=== PATIENT | male | born 1950 | race Caucasian/White ===

== ENCOUNTER 2021-01-19 07:48 | Inpatient (IN) | payer MEDICAID, OTHER ==
[~2021-01-19] VITALS: Ht 165.1 cm; Wt 72.2 kg
[2021-01-19] MEDS ORDERED: DILTIAZEM HCL 5MG/ML 5ML VIAL IV ONE (08:30)
[2021-01-19] MEDS ORDERED: SODIUM CHLORIDE 0.9% 500 ML IV ONE ×2 (08:30→09:30)
[2021-01-19 08:34] LABS: BASOPHILS % 0.8 % (0.0-2.0); EOSINOPHILS % 0.8 % (0.0-5.0); HEMATOCRIT. 44.4 % (42.0-52.0); HEMOGLOBIN. 14.8 g/dL (14.0-18.0); LYMPHOCYTES % 26.6 % (20.0-50.0); MEAN CORPUSCULAR HEMOGLOBIN 30.4 pg (28.0-32.0); MEAN CORPUSCULAR VOLUME 91.3 fL (80.0-94.0); MEAN PLATELET VOLUME 8.1 fl (7.4-10.4); MONOCYTES % 6.7 % (2.0-8.0); NEUTROPHILS % 65.1 % (40.0-76.0); PLATELET 163 x1000/uL (130-400); RED BLOOD CELL COUNT 4.87 mill/uL (4.7-6.1); RED CELL DISTRIBUTION WIDTH 12.9 % (11.6-14.6)
[2021-01-19 08:36] LABS: CHLORIDE 110 mEq/L (98-107)
[2021-01-19] MEDS ORDERED: DIPHENHYDRAMINE 50MG/ML VIAL IV PRN (09:45)
[2021-01-19] MEDS ORDERED: ONDANSETRON HCL 4MG/2ML INJ IV PRN (09:45)
[2021-01-19] MEDS ORDERED: MORPHINE SULFATE 2 MG/ML CPJ (NOT FOR IM USE) IV PRN (09:45)
[2021-01-19] MEDS ORDERED: IPRATROPIUM/ALBUTEROL 0.5-3(2.5)MG/3ML NEB HHN PRN (09:45)
[2021-01-19] MEDS ORDERED: CLONIDINE 0.1MG TABLET PO PRN (09:45)
[2021-01-19] MEDS ORDERED: ENOXAPARIN 40MG/0.4ML SYR SUBCUT SCH (10:00)
[2021-01-19] MEDS: ACETAMINOPHEN 325MG TABLET PO PRN (10:01)
[2021-01-19] MEDS: METOPROLOL TARTRATE 25MG TABLET PO SCH ×4 (10:15→17:00)
[2021-01-19] MEDS ORDERED: ENOXAPARIN 30MG/0.3ML SYR SUBCUT NR (11:30)
[2021-01-19] MEDS ORDERED: IOHEXOL-350 100 ML BOTTLE ONE (12:33)
[2021-01-19 14:00] VITALS: BP 113/61
[2021-01-19 14:03] VITALS: BP 113/61
[2021-01-19 15:30] VITALS: BP 104/64
[2021-01-19 15:59] LABS: INR 1.1; PROTHROMBIN TIME 11.4 sec (9.6-11.0)
[2021-01-19 17:30] VITALS: BP 102/69
[2021-01-19] MEDS ORDERED: APIX5TAB MT (17:34)
[2021-01-19] MEDS ORDERED: OMEP10SU2 PO (17:34)
[2021-01-19] MEDS ORDERED: TAMS-11 MT (17:34)
[2021-01-19] MEDS ORDERED: ASPI-1406 MT (17:34)
[2021-01-19] MEDS ORDERED: BUSP5TAB3 MT (17:34)
[2021-01-19] MEDS ORDERED: TOPUD MT (17:34)
[2021-01-19] MEDS ORDERED: LOPHC2 MT (17:34)
[2021-01-19] MEDS ORDERED: ATOR20TA65 MT (17:34)
[2021-01-19] MEDS ORDERED: CALC-26 MT (17:34)
[2021-01-19] MEDS ORDERED: LORAZEPAM 1MG TABLET PO NR (17:45)
[2021-01-19] MEDS ORDERED: *PATIENT'S OWN MEDICATION STORAGE XX SCH (17:45)
[2021-01-19 20:00] VITALS: BP 105/61
[2021-01-19] MEDS ORDERED: ENOXAPARIN 80MG/0.8ML SYR SUBCUT SCH (21:00)
[2021-01-19] MEDS: ENOXAPARIN 80MG/0.8ML SYR SUBCUT SCH (21:13)
[2021-01-19 22:00] VITALS: BP 106/67
[2021-01-20] VITALS (12 sets, daily range): BP systolic 96–158; BP diastolic 60–94
[2021-01-20 06:56] LABS: BASOPHILS % 0.6 % (0.0-2.0); EOSINOPHILS % 0.7 % (0.0-5.0); HEMATOCRIT. 39.1 % (42.0-52.0); LYMPHOCYTES % 26.8 % (20.0-50.0); MEAN CORPUSCULAR HEMOGLOBIN 30.4 pg (28.0-32.0); MEAN CORPUSCULAR VOLUME 91.2 fL (80.0-94.0); MEAN PLATELET VOLUME 8.6 fl (7.4-10.4); MONOCYTES % 5.7 % (2.0-8.0); NEUTROPHILS % 66.2 % (40.0-76.0); PLATELET 152 x1000/uL (130-400); RED BLOOD CELL COUNT 4.28 mill/uL (4.7-6.1); RED CELL DISTRIBUTION WIDTH 13.4 % (11.6-14.6)
[2021-01-20 07:10] LABS: CHLORIDE 111 mEq/L (98-107)
[2021-01-20] MEDS: METOPROLOL TARTRATE 25MG TABLET PO SCH ×2 (08:39→17:49)
[2021-01-20] MEDS: ENOXAPARIN 80MG/0.8ML SYR SUBCUT SCH ×2 (08:39→21:34)
[2021-01-20] MEDS ORDERED: NALOXONE HCL 0.4MG/ML VIAL IV PRN (09:45)
[2021-01-20 13:24] LABS: CREATINE KINASE MB FRACTION 1.4 ng/mL (0.5-3.6)
[2021-01-20] MEDS: ACETAMINOPHEN 325MG TABLET PO PRN (21:33)
[2021-01-21] VITALS (11 sets, daily range): BP systolic 95–142; BP diastolic 58–88
[2021-01-21 05:42] LABS: BASOPHILS % 0.5 % (0.0-2.0); EOSINOPHILS % 1.5 % (0.0-5.0); HEMOGLOBIN. 13.9 g/dL (14.0-18.0); LYMPHOCYTES % 33.7 % (20.0-50.0); MEAN CORPUSCULAR HEMOGLOBIN 30.5 pg (28.0-32.0); MEAN CORPUSCULAR VOLUME 92.2 fL (80.0-94.0); MEAN PLATELET VOLUME 8.2 fl (7.4-10.4); MONOCYTES % 7.1 % (2.0-8.0); NEUTROPHILS % 57.2 % (40.0-76.0); PLATELET 157 x1000/uL (130-400); RED BLOOD CELL COUNT 4.56 mill/uL (4.7-6.1); RED CELL DISTRIBUTION WIDTH 13.2 % (11.6-14.6)
[2021-01-21 05:55] LABS: CHLORIDE 110 mEq/L (98-107)
[2021-01-21] MEDS: METOPROLOL TARTRATE 25MG TABLET PO SCH ×2 (08:09→16:35)
[2021-01-21] MEDS: ENOXAPARIN 80MG/0.8ML SYR SUBCUT SCH ×2 (08:09→21:01)
[2021-01-21] MEDS ORDERED: APIX5TAB MT ×2 (13:13)
[2021-01-21] MEDS ORDERED: METO25TA6 PO ×2 (13:13)
[2021-01-21] MEDS: BUSPIRONE HCL 5MG TABLET PO SCH ×2 (16:35→21:00)
[2021-01-22] VITALS (8 sets, daily range): BP systolic 98–130; BP diastolic 52–88
[2021-01-22] MEDS: ENOXAPARIN 80MG/0.8ML SYR SUBCUT SCH (08:29)
[2021-01-22] MEDS: METOPROLOL TARTRATE 25MG TABLET PO SCH (08:29)
[2021-01-22] MEDS: BUSPIRONE HCL 5MG TABLET PO SCH (08:30)
[2021-01-22] MEDS ORDERED: APIX5TAB MT (12:13)
[2021-01-22] MEDS ORDERED: METO25TA6 MT (12:13)
== END 2021-01-22 15:11 | disposition home or self-care (01) | DRG 201 ==
LOC: ER 07:48 → EDBEDREQTM 08:17 → EDBEDREQ 08:25 → EDBEDREQSVC 08:25 → EDBEDREQTM 08:25 → EDBEDREQ 09:36 → EDBEDREQTM 09:36 → ENRESERV 11:52 → 3WST 13:32
PROVIDERS: ADMIT Internal Medicine; ATTEND Internal Medicine
DX: I48.11 Longstanding persistent atrial fibrillation (principal); I50.40 Unspecified combined systolic (congestive) and diastolic (congestive) heart failure; I11.0 Hypertensive heart disease with heart failure; Z20.822 Contact with and (suspected) exposure to COVID-19; R73.9 Hyperglycemia, unspecified; R73.03 Prediabetes; Z79.01 Long term (current) use of anticoagulants; Z82.49 Family history of ischemic heart disease and other diseases of the circulatory system
CPT/HCPCS: 36415; 71045; 71275; 80048; 80053; 80061; 82550; 82553; 83036; 83880; 84443; 84484; 85025; 87426; 93005; 93306; 93970; 99291; J1650; J2270; J3490; J7040; Q9967

== ENCOUNTER 2025-01-28 10:23 | Inpatient (IN) | payer MEDICARE, MEDICAID ==
[~2025-01-28] VITALS: Ht 167.6 cm; Wt 85.7 kg
[~2025-01-28 10:23] MED LIST: APIX5TAB MT; ASPI-1406 MT; ATOR20TA65 MT; BUSP5TAB3 MT; CALC-26 MT; METO25TA6 MT; OMEP10SU2 PO; TAMS-54 MT
[2025-01-28 10:25] VITALS: O2SAT 98
[2025-01-28] MEDS: ACETAMINOPHEN 500MG TABLET PO ONE (11:15)
[2025-01-28] MEDS: KETOROLAC 15MG/ML VIAL IV ONE (11:15)
[2025-01-28] MEDS: SODIUM CHLORIDE 0.9% 1,000 ML IV ONE (11:15)
[2025-01-28] MEDS: ONDANSETRON HCL 4MG/2ML INJ IV ONE (11:15)
[2025-01-28 11:45] LABS: BASOPHILS % 0.4 % (0.0-2.0); EOSINOPHILS % 0.0 % (0.0-5.0); HEMATOCRIT. 41.6 % (42.0-52.0); HEMOGLOBIN. 13.7 g/dL (14.0-18.0); LYMPHOCYTES % 11.6 % (20.0-50.0); MEAN PLATELET VOLUME 8.9 fl (7.4-10.4); MONOCYTES % 4.1 % (2.0-8.0); NEUTROPHILS % 83.9 % (40.0-76.0); PLATELET 165 x1000/uL (130-400); RED BLOOD CELL COUNT 4.46 mill/uL (4.7-6.1); RED CELL DISTRIBUTION WIDTH 13.4 % (11.6-14.6)
[2025-01-28 12:01] LABS: CREATININE 0.7 mg/dL (0.6-1.3)
[2025-01-28 12:02] LABS: UREA NITROGEN BLOOD 14 mg/dL (9-23)
[2025-01-28 12:03] LABS: TROPONIN I HIGH SENSITIVITY 25 ng/L (3.0-53)
[2025-01-28 12:04] LABS: ASPARTATE AMINOTRANSFERASE 24 IU/L (<34); BILIRUBIN DIRECT 0.2 mg/dL (<=3.0); BILIRUBIN TOTAL 0.7 mg/dL (0.1-1.0); PROTEIN TOTAL 6.3 g/dL (6.0-8.3)
[2025-01-28 13:56] LABS: CLARITY URINE CLOUDY (CLEAR); COLOR URINE YELLOW (YELLOW); GLUCOSE URINE NEGATIVE (NEGATIVE); KETONES URINE NEGATIVE (NEGATIVE); LEUKOCYTE ESTERASE URINE NEGATIVE (NEGATIVE); NITRITE URINE NEGATIVE (NEGATIVE); OCCULT BLOOD URINE NEGATIVE (NEGATIVE); PH URINE 6.5 (4.5-8.0); PROTEIN URINE NEGATIVE (NEGATIVE); SPECIFIC GRAVITY URINE 1.008 (1.005-1.030); UROBILINOGEN URINE 0.2 E.U./dL (0.2-1.0)
[2025-01-28 14:28] LABS: INFLUENZA TYPE A Presumptive Negative (Pres. Neg.); INFLUENZA TYPE B Presumptive Negative (Pres. Neg.); RESPIRATORY SYNCYTIAL VIRUS Not Detected (Not Detectd)
[2025-01-28] MEDS ORDERED: CLONIDINE 0.1MG TABLET PO PRN (15:15)
[2025-01-28] MEDS ORDERED: IPRATROPIUM/ALBUTEROL 0.5-3(2.5)MG/3ML NEB HHN PRN (15:15)
[2025-01-28] MEDS ORDERED: GUAIFENESIN 200MG/10ML SUGAR FREE UDC PO PRN (15:15)
[2025-01-28] MEDS ORDERED: DOCUSATE SODIUM 100MG CAPSULE PO PRN (15:15)
[2025-01-28] MEDS ORDERED: DEXTROSE 50% WATER 50ML SYRINGE IV PRN (15:15)
[2025-01-28] MEDS ORDERED: ACETAMINOPHEN 325MG TABLET PO PRN (15:15)
[2025-01-28] MEDS ORDERED: IOHEXOL-350 100 ML BOTTLE ONE (15:22)
[2025-01-28 16:11] LABS: TRIGLYCERIDE 157.0 mg/dL (0-150)
[2025-01-28 16:12] LABS: LDL CHOLESTEROL 51.0 mg/dL (5-100)
[2025-01-28 16:15] LABS: BACTERIA URINE TRACE; RBC URINE NONE SEEN /hpf (0-2); SQUAMOUS EPITHELIAL CELL URINE FEW /lpf (RARE/1+); WBC URINE 0-2 /hpf (0-2)
[2025-01-28 16:16] LABS: T4 FREE 1.17 ng/dL (0.89-1.76)
[2025-01-28] MEDS: METOPROLOL TARTRATE 25MG TABLET PO SCH (16:56)
[2025-01-28] MEDS: DILTIAZEM HCL 5MG/ML 5ML VIAL IV SCH (16:56)
[2025-01-28] MEDS: SODIUM CHLORIDE 0.9% 1,000 ML IV SCH (16:57)
[2025-01-28] MEDS: INSULIN LISPRO 100 UNITS/ML SUBCUT SCH (17:15)
[2025-01-28] MEDS: ONDANSETRON HCL 4MG/2ML INJ IV PRN (17:43)
[2025-01-28] MEDS: BLOOD SUGAR DIAGNOSTIC STRIP TEST SCH (17:43)
[2025-01-28] MEDS: ACETAMINOPHEN 325MG TABLET PO PRN (17:43)
[2025-01-28] MEDS: ENOXAPARIN 100MG/ML SYR SUBCUT SCH (17:54)
[2025-01-28] MEDS: ASPIRIN 81MG TABLET PO SCH (17:54)
[2025-01-28 18:24] VITALS: BP 115/68; PULSE 78; RESP 17; TEMP 36.3624
[2025-01-28] MEDS: ATORVASTATIN CALCIUM 40MG TABLET PO SCH (20:17)
[2025-01-28] MEDS ORDERED: APIXABAN 5 MG TABLET PO SCH (21:00)
[2025-01-29 06:16] LABS: BASOPHILS % 0.3 % (0.0-2.0); EOSINOPHILS % 1.3 % (0.0-5.0); HEMATOCRIT. 38.7 % (42.0-52.0); HEMOGLOBIN. 12.8 g/dL (14.0-18.0); LYMPHOCYTES % 27.9 % (20.0-50.0); MEAN PLATELET VOLUME 9.0 fl (7.4-10.4); MONOCYTES % 7.5 % (2.0-8.0); NEUTROPHILS % 63.0 % (40.0-76.0); PLATELET 147 x1000/uL (130-400); RED BLOOD CELL COUNT 4.15 mill/uL (4.7-6.1); RED CELL DISTRIBUTION WIDTH 13.8 % (11.6-14.6)
[2025-01-29 06:29] LABS: CREATININE 0.7 mg/dL (0.6-1.3); UREA NITROGEN BLOOD 11 mg/dL (9-23)
[2025-01-29 06:31] LABS: PHOSPHORUS 2.9 mg/dL (2.5-4.9)
[2025-01-29 08:00] VITALS: BP 110/59; PULSE 77; RESP 18; TEMP 36.6; O2SAT 100
[2025-01-29] MEDS: ENOXAPARIN 100MG/ML SYR SUBCUT SCH (09:19)
[2025-01-29 10:09] LABS: *AMPHETAMINES SCREEN URINE NEGATIVE (NEGATIVE)
[2025-01-29 10:10] LABS: *BARBITURATES SCREEN URINE NEGATIVE (NEGATIVE); *BENZODIAZEPINES SCREEN URINE NEGATIVE (NEGATIVE); *COCAINE SCREEN URINE NEGATIVE (NEGATIVE); CANNABINOID URINE SCREEN NEGATIVE (NEGATIVE); ECSTASY MDMA SCREEN URINE NEGATIVE (NEGATIVE); METHADONE URINE SCREEN NEGATIVE (NEGATIVE); OPIATES URINE SCREEN NEGATIVE (NEGATIVE); PHENCYCLIDINE URINE SCREEN NEGATIVE (NEGATIVE)
[2025-01-29 12:00] VITALS: BP 136/79; PULSE 75; RESP 18; TEMP 36.6; O2SAT 100
[2025-01-29 16:00] VITALS: BP 121/85; PULSE 80; RESP 18; TEMP 36.4; O2SAT 99
[2025-01-29 20:00] VITALS: BP 124/93; PULSE 102; RESP 17; TEMP 36.2; O2SAT 96
[2025-01-29] MEDS: LORAZEPAM 0.5MG TABLET PO PRN (21:59)
[2025-01-29] MEDS: SODIUM CHLORIDE 0.9% 1,000 ML IV ONE (22:35)
[2025-01-30] VITALS: BP 124/98; PULSE 70; RESP 17; TEMP 36.4; O2SAT 98
[2025-01-30 02:20] LABS: INR 1.1
[2025-01-30 04:00] VITALS: BP 109/66; PULSE 75; RESP 17; TEMP 36.3; O2SAT 99
[2025-01-30] MEDS: NITROGLYCERIN 0.4MG TABLET SL SL NR (04:32)
[2025-01-30] MEDS: METOPROLOL TARTRATE 25MG TABLET PO NR (06:17)
[2025-01-30 07:17] LABS: BASOPHILS % 0.4 % (0.0-2.0); EOSINOPHILS % 0.8 % (0.0-5.0); HEMATOCRIT. 39.7 % (42.0-52.0); HEMOGLOBIN. 13.2 g/dL (14.0-18.0); LYMPHOCYTES % 26.6 % (20.0-50.0); MEAN PLATELET VOLUME 9.0 fl (7.4-10.4); MONOCYTES % 6.3 % (2.0-8.0); NEUTROPHILS % 65.9 % (40.0-76.0); PLATELET 142 x1000/uL (130-400); RED BLOOD CELL COUNT 4.29 mill/uL (4.7-6.1); RED CELL DISTRIBUTION WIDTH 13.6 % (11.6-14.6)
[2025-01-30 07:52] LABS: CREATININE 0.6 mg/dL (0.6-1.3)
[2025-01-30 07:53] LABS: UREA NITROGEN BLOOD 6 mg/dL (9-23)
[2025-01-30 07:55] LABS: PHOSPHORUS 2.6 mg/dL (2.5-4.9)
[2025-01-30 08:00] VITALS: BP 122/86; PULSE 75; RESP 18; TEMP 36.6; O2SAT 98
[2025-01-30 12:00] VITALS: BP 112/75; PULSE 71; RESP 18; TEMP 37; O2SAT 98
[2025-01-30 13:23] LABS: TROPONIN I HIGH SENSITIVITY 52 ng/L (3.0-53)
[2025-01-30] MEDS: LOPERAMIDE HCL 2MG CAPSULE PO SCH (14:03)
[2025-01-30 14:44] VITALS: BP 125/82; PULSE 82; RESP 17; TEMP 97.6
[2025-01-31] MEDS ORDERED: IOHEXOL-350 100 ML BOTTLE ONE (16:21)
== END 2025-01-30 14:09 | disposition home or self-care (01) | DRG 303 ==
LOC: ER 10:23 → 5WST 13:46 → EDBEDREQ 13:50 → EDBEDREQTM 13:50 → ENRESERV 14:17
PROVIDERS: ADMIT Internal Medicine; ATTEND Internal Medicine
DX: I25.110 Atherosclerotic heart disease of native coronary artery with unstable angina pectoris (principal); E78.5 Hyperlipidemia, unspecified; Z79.01 Long term (current) use of anticoagulants; I10 Essential (primary) hypertension; I48.19 Other persistent atrial fibrillation; Z20.822 Contact with and (suspected) exposure to COVID-19; R73.9 Hyperglycemia, unspecified; Z87.891 Personal history of nicotine dependence; Z88.0 Allergy status to penicillin; Z79.899 Other long term (current) drug therapy; Z82.49 Family history of ischemic heart disease and other diseases of the circulatory system
CPT/HCPCS: 36415; 71045; 71275; 80048; 80061; 80076; 80305; 81003; 82962; 83036; 83735; 83880; 84100; 84439; 84443; 84484; 85025; 85379; 87420; 87426; 87804; 93005; 93306; 93970; 99285; J1650; J1815; J1885; J2405; J3490; J7030; Q9967